=== PATIENT | female | born 1945 | race Two or more races ===

== ENCOUNTER → 2021-09-02 | Outpatient (CLI) | payer MEDICARE, OTHER ==
[~2021-09-02] MED LIST: Aspirin EC81 MG PO; Benadryl 50 mg50 MG PO; CODACE30 PO; CRUTCH2 USE; ESCI10 PO; HYDCHL25 PO; HYDR1TAB94 PO; LISI5 PO; MELO7.5 PO; METO25; METPRE4DP PO; PROM25 PO; Pepcid20 MG PO; Prilosec20 MG PO; SODCHL1 PO; Simvastatin20 MG PO; TRAM50 PO
[2021-09-02 18:05] LABS: Albumin, Blood 3.2 g/dL (3.4-5.0); Albumin/Globulin Ratio 0.7 (0.8-1.8); Bilirubin, Total 0.6 mg/dL (0.1-1.0); Bun/Creatinine Ratio 12.5 (12.0-20.0); Calcium, Blood 9.5 mg/dL (8.5-10.1); Creatinine, Blood 1.12 mg/dL (0.40-1.00); Globulin, Blood 4.5 g/dL (2.2-4.0); Potassium, Blood 3.8 mmol/L (3.5-5.5); Total Protein, Blood 7.7 g/dL (6.4-8.2)
== END | disposition home or self-care (01) ==
LOC: LAB SHORT 16:07 → LAB 16:07
PROVIDERS: Nurse Practitioner
DX: N18.9 Chronic kidney disease, unspecified (principal)
CPT/HCPCS: 80053

== ENCOUNTER 2022-02-20 13:24 | Emergency (ER) | payer MEDICARE, OTHER ==
[~2022-02-20] VITALS: Ht 152.4 cm; Wt 44.5 kg
[2022-02-20] MEDS ORDERED: CEPH500 PO (14:46)
== END 2022-02-20 15:40 | disposition home or self-care (01) ==
LOC: ER 13:24
DX: S92.421A Displaced fracture of distal phalanx of right great toe, initial encounter for closed fracture (principal); L03.031 Cellulitis of right toe; I10 Essential (primary) hypertension; Z79.899 Other long term (current) drug therapy; Z88.0 Allergy status to penicillin; X58.XXXA Exposure to other specified factors, initial encounter
CPT/HCPCS: 73660; 99283-25

== ENCOUNTER → 2022-03-04 | Outpatient (CLI) | payer MEDICARE, OTHER ==
[~2022-03-04] MED LIST changes: +CEPH500 PO
== END | disposition home or self-care (01) ==
LOC: LAB 16:56 → LAB SHORT 16:56
DX: S92.424D Nondisplaced fracture of distal phalanx of right great toe, subsequent encounter for fracture with routine healing (principal)
CPT/HCPCS: 87070; 87077; 87147; 87186; 87205

== ENCOUNTER 2022-05-08 12:31 | Day surgery (SDC) | payer MEDICARE, OTHER ==
[~2022-05-08] VITALS: Ht 152.4 cm; Wt 43.8 kg
== END 2022-05-08 16:00 | disposition home or self-care (01) ==
LOC: ORSCSDS 12:31
PROVIDERS: Podiatrist Foot & Ankle Surgery
PROC: 0Y6P0Z1 Detachment at Right 1st Toe, High, Open Approach (ICD-10-PCS; principal; 2022-05-08 14:10)
DX: M86.171 Other acute osteomyelitis, right ankle and foot (principal); I12.9 Hypertensive chronic kidney disease with stage 1 through stage 4 chronic kidney disease, or unspecified chronic kidney disease; N18.9 Chronic kidney disease, unspecified; J44.9 Chronic obstructive pulmonary disease, unspecified; F17.210 Nicotine dependence, cigarettes, uncomplicated; Z86.73 Personal history of transient ischemic attack (TIA), and cerebral infarction without residual deficits; G20 Parkinson's disease; Z79.899 Other long term (current) drug therapy; Z79.82 Long term (current) use of aspirin
CPT/HCPCS: J0171; J2250; J2704; J3010

== ENCOUNTER 2022-07-03 12:53 | Inpatient (IN) | payer OTHER, MEDICARE ==
[~2022-07-03] VITALS: Ht 157.5 cm; Wt 46.4 kg
[2022-07-03] MEDS ORDERED: ESCI20 PO (13:13)
[2022-07-03 13:20] LABS: BASOPHILS ABSOLUTE AUTO 0.16 K/mm3 (0.00-0.23); BASOPHILS PERCENT AUTO 1 % (0-2); EOSINOPHILS PERCENT AUTO 1 % (0-6); Hemoglobin 13.5 g/dL (11.5-16.0); IMMATURE GRAN ABSOLUTE AUTO 0.16 K/mm3 (0.00-0.10); IMMATURE GRAN PERCENT AUTO 1 % (0-1); LYMPHOCYTES ABSOLUTE AUTO 2.47 K/mm3 (0.84-5.20); LYMPHOCYTES PERCENT AUTO 16 % (21-46); MONOCYTES ABSOLUTE AUTO 0.89 K/mm3 (0.16-1.47); MONOCYTES PERCENT AUTO 6 % (4-13); Mean Corpuscular HGB 31.8 pg (26.0-34.0); Mean Corpuscular HGB Conc 33.8 g/dL (31.5-36.5); Mean Corpuscular Volume 94 fL (80-100); NEUTROPHILS ABSOLUTE AUTO 12.08 K/mm3 (1.96-9.15); NEUTROPHILS PERCENT AUTO 76 % (41-73); Platelet Count 265 K/mm3 (150-400); RDW Coefficient Variation 14.2 % (11.7-14.2); RDW Standard Deviation 49.2 fL (35.1-46.3); Red Blood Cell Count 4.24 M/mm3 (3.80-5.20); White Blood Cell Count 15.96 K/mm3 (4.00-11.30)
[2022-07-03 13:43] LABS: International Normalized Ratio 0.97; Prothrombin Time Results 10.2 Sec (9.7-11.5)
[2022-07-03 13:46] LABS: Alanine Aminotransfer (ALT/SGP 24 U/L (12-78); Albumin, Blood 3.8 g/dL (3.4-5.0); Albumin/Globulin Ratio 1.1 (0.8-1.8); Alk Phos 56 U/L (50-136); Anion Gap 7 mmol/L (6-16); Aspartate Aminotrans (AST/SGOT 35 U/L (12-37); Bilirubin, Total 0.4 mg/dL (0.1-1.0); Blood Urea Nitrogen 19 mg/dL (8-24); Bun/Creatinine Ratio 15.1 (12.0-20.0); CO2, Blood 27 mmol/L (21-32); Calcium, Blood 9.6 mg/dL (8.5-10.1); Chloride, Blood 105 mmol/L (98-108); Creatinine, Blood 1.26 mg/dL (0.40-1.00); Ethanol (Alcohol), Blood, Med <3 mg/dL; Globulin, Blood 3.4 g/dL (2.2-4.0); Glomerular Filtration Rate 44 (60-); Glucose, Blood 122 mg/dL (70-99); Potassium, Blood 3.7 mmol/L (3.5-5.5); Sodium, Blood 139 mmol/L (136-145); Total Protein, Blood 7.2 g/dL (6.4-8.2)
--- NOTE | 2022-07-04 02:03 | NUR ---
LLE CIRCULATION CONCERNS PT ARRIVED TO THE FLOOR AND WAS ASSESSED BY THE PRIMARY RN, AFTER ASSESSMENT THE PRIMARY RN CAME TO THIS RN TO DISCUSS CONCERNS REGARDING THE CIRCULATION IN THE PATIENTS LLE REPORTING INABILITY TO PALPATE OR GET A DORSALIS PEDIS PULSE VIA DOPPLER. AFTER A BRIEF EXAM OF THE AFFECTED EXTREMITY IT WAS APPARENT THAT THE LLE WAS COOLER AND THIS RN WAS ABLE TO GET A FAINT PULSE ON DOPPLER WHICH WAS THEN MARKED. CONSULTING ORTHOPEDIC DR WAS CONTACTED AND SITUATION WAS DISCUSSED, AT HER DIRECTION THE SUAD WRAP WAS ADJUSTED AT APPROXIMATELY 2215 ON 07/03/22 WHICH RESULTED IN A NOTICABLE INCREASE IN CIRCULATION IN THAT LEG. PULSE IS NOW FAINTLY PALPABLE USING 2 FINGERS AND PATIENT IS ABLE TO WIGGLE TOES/MOVE ANKLE THOUGH SOME EVIDENCE OF DROP FOOT WAS NOTED BY BOTH PRIMARY AND THIS RN. THE PATIENTS LEG WAS STABILIZED THROUGHOUT THE ADJUSTMENTS MADE TO THE SUAD WRAP AND BRACE. BRACE REPLACED AFTER SUAD WRAP REAPPLIED. PATIENT IN STABLE CONDITION AT TIME OF COMPLETION WITH SOME PAIN R/T MOVEMENT DURING PROCEDURE. PATIENT EDUCATION ON REASON FOR ADJUSTMENTS TO SUAD WRAP AND AGREED TO PROCEDURE. CALL LIGHT IN REACH, WILL CTM.
[2022-07-04 04:56] LABS: BASOPHILS ABSOLUTE AUTO 0.09 K/mm3 (0.00-0.23); BASOPHILS PERCENT AUTO 1 % (0-2); EOSINOPHILS ABSOLUTE AUTO 0.03 K/mm3 (0.00-0.68); EOSINOPHILS PERCENT AUTO 0 % (0-6); Hemoglobin 11.6 g/dL (11.5-16.0); IMMATURE GRAN ABSOLUTE AUTO 0.04 K/mm3 (0.00-0.10); IMMATURE GRAN PERCENT AUTO 0 % (0-1); LYMPHOCYTES ABSOLUTE AUTO 1.62 K/mm3 (0.84-5.20); LYMPHOCYTES PERCENT AUTO 18 % (21-46); MONOCYTES ABSOLUTE AUTO 0.87 K/mm3 (0.16-1.47); MONOCYTES PERCENT AUTO 10 % (4-13); Mean Corpuscular HGB 31.6 pg (26.0-34.0); Mean Corpuscular HGB Conc 33.1 g/dL (31.5-36.5); Mean Corpuscular Volume 95 fL (80-100); Mean Platelet Volume 10.1 fL (9.1-12.4); NEUTROPHILS ABSOLUTE AUTO 6.53 K/mm3 (1.96-9.15); NEUTROPHILS PERCENT AUTO 71 % (41-73); Platelet Count 205 K/mm3 (150-400); RDW Coefficient Variation 14.2 % (11.7-14.2); RDW Standard Deviation 49.8 fL (35.1-46.3); Red Blood Cell Count 3.67 M/mm3 (3.80-5.20); White Blood Cell Count 9.18 K/mm3 (4.00-11.30)
--- NOTE | 2022-07-04 05:11 | NUR ---
WHEN ARRIVING TO TO MEDICATE FOR C/O OF LLE PAIN, PT C/O CHEST PAIN,WHEN QUESTIONED FURTHER,PT INITIALLY STATED CP ONLY WHEN SHE TOUCHES CHEST WHICH IS NOTEABLE FOR BRUISES R SHOULDER THROUGH UPPER CHEST.BRIEFLY AFTER,PT REPORTED CHEST PAIN PRESENT AT REST AND WHEN NOT TOUCHING AREA.ALSO C/O FEELING "TIGHT" AT BACK OF NECK. NO C/O SOB.VSS.CONFIRMED WITH MECHANICAL DESIGN TECHNICIAN DENA NO CHANGE PER TELE.I CALLED DR ESPINOZA AND DISCUSSED ABOVE INCLUDING EKG IN ER, NO CARDIAC LABS DONE,VS,BRIEF UPDATE OF PT HX SINCE ADMIT. DR ESPINOZA ORDERED TROPS X3,PER CABLE TELEVISION ACCESS COORDINATOR THEY CAN RUN NOW TROP ON GREEN TOP JUST DRAWN.
[2022-07-04 05:30] LABS: Magnesium, Blood 2.1 mg/dL (1.6-2.4)
[2022-07-04 05:36] LABS: Bun/Creatinine Ratio 14.7 (12.0-20.0); Calcium, Blood 9.3 mg/dL (8.5-10.1); Creatinine, Blood 1.36 mg/dL (0.40-1.00); Potassium, Blood 4.2 mmol/L (3.5-5.5)
--- NOTE | 2022-07-04 07:42 | NUR ---
US IN TO DO ABD US ON PT.
--- NOTE | 2022-07-04 08:25 | NUR ---
LAB ATTEMPTED DRAW FOR TROP THIS AM AND WERE UNABLE. DAY RN ASKED LAB TO RETURN AFTER PAIN MEDS TO HAVE DIFFERENT INTERMEDIATE ACCOUNTANT TRY TO DRAW PT.
--- NOTE | 2022-07-04 10:17 | NUR ---
DR BHANDARI IN TO SEE PT.
[2022-07-04 10:42] LABS: Influenza A, PCR NEGATIVE (NEGATIVE); Influenza B, PCR NEGATIVE (NEGATIVE); Resp Syncytial Virus, PCR NEGATIVE (NEGATIVE); SARS-Cov-2 (COVID-19) PCR, MMC NEGATIVE (NEGATIVE)
--- NOTE | 2022-07-04 12:00 | NUR ---
NOTIFIED NURSING SUPERVSIOR ECHO TO BE COMPLETED STAT DR LOMAX REQUESTING ECHO TO BE COMPLETED STAT.
--- NOTE | 2022-07-04 15:45 | NUR ---
DR LOMAX IN TO SEE PT.
--- NOTE | 2022-07-04 16:18 | NUR ---
PAMELA PRATT, HYDRAULIC AUTO JACK MECHANIC, MEETING W/PATIENT.
--- NOTE | 2022-07-04 17:01 | NUR ---
SUMMARY PT C/O CP THIS AM, PRIOR TO DAYSHIFT. TROPONIN WAS ELEVATED, HAD CRITICAL HIGH OF 119 AT 1130. LAST TROPONIN TRENDING DOWN AT 115. DR LOMAX CONSULTED AND ECHO PERFORMED FOR SURGICAL CLEARANCE. PLAN FOR NPO AFTER [place] TONIGHT AND OR IN AM W/DR CHOUDHURY. PT USES ETOH DAILY, REPORTING DRINKS 5-6 BEERS/DAY. NOTIFIED DR LOVE AND ORDERS OBTAINED. PT LLE IN IMMOBILIZER. L FOOT PULSE FOUND W/DOPPLER. R FOOT PULSE FAINT/THREADY. MEDICATED PT PER ORDERS FOR PAIN. CALL LIGHT IN REACH.
--- NOTE | 2022-07-04 17:33 | NUR ---
REPORT GIVEN TO BLADE Shelton RN.
[2022-07-05 06:05] LABS: Hematocrit 36.1 % (33.0-51.0); Hemoglobin 11.9 g/dL (11.5-16.0); Mean Corpuscular HGB 31.5 pg (26.0-34.0); Mean Corpuscular Volume 96 fL (80-100); Mean Platelet Volume 10.3 fL (9.1-12.4); Platelet Count 208 K/mm3 (150-400); RDW Coefficient Variation 13.9 % (11.7-14.2); RDW Standard Deviation 49.5 fL (35.1-46.3); Red Blood Cell Count 3.78 M/mm3 (3.80-5.20); White Blood Cell Count 13.34 K/mm3 (4.00-11.30)
[2022-07-05 06:40] LABS: Calcium, Blood 9.3 mg/dL (8.5-10.1); Creatinine, Blood 1.12 mg/dL (0.40-1.00); Potassium, Blood 3.9 mmol/L (3.5-5.5)
--- NOTE | 2022-07-05 09:01 | NUR ---
SUMMARY PT IN AND OUT OF CONFUSION AND ANXIETY TONIGHT AND THIS AM. PTS FAMILY REPORTS THIS BASELINE. PT OUT TO OR THIS AM.
--- NOTE | 2022-07-05 15:21 | NUR ---
EKG DONE PER DR MONIE MERINO
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
--- NOTE | 2022-07-06 07:59 | NUR ---
SUMMARY PT SLEPT OFF AND ON WITH AT SIDE.VOIDING AND WITHOUT NAUSEA. CIRC CKS REMAIN INTACT BLE.MED IV FOR PAIN THIS AM.
--- NOTE | 2022-07-06 12:58 | NUR ---
PATIENT C/O CHEST PAIN WITH MOVEMENT AND DEEP BREATHING. MD AWARE.
--- NOTE | 2022-07-06 17:40 | NUR ---
SHIFT SUMMARY POD 1 ORIF LEFT FEMUR. SUAD WRAP & IMMOBILIZER TO LLE. UP TO CHAIR WITH PT/OT, 2P MOD/MAX ASSIST. PATIENT RELUCANT TO STAY UP IN CHAIR T/O DAY AND FOR MEALS. PROVIDED EDUCATION OF BENEFITS TO BEING UP TO CHAIR, PATIENT STILL DECLINED. PAIN MANAGED PER EMAR. TOLERATING PO INTAKE WELL, INCONTINENT OF URINE, ATTENDS IN PLACE AND CHANGED PRN T/O SHIFT. ENCOURAGED DEEP BREATHING AND IS USE T/O SHIFT. CALLS APPROPRIATELY, WILL REPORT TO ONCOMING RN.
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
[2022-07-07 16:40] LABS: Influenza A, PCR NEGATIVE (NEGATIVE); Influenza B, PCR NEGATIVE (NEGATIVE); Resp Syncytial Virus, PCR NEGATIVE (NEGATIVE); SARS-Cov-2 (COVID-19) PCR, MMC NEGATIVE (NEGATIVE)
--- NOTE | 2022-07-08 12:41 | NUR ---
DISCHARGE NOTE: ATTEMPTED TO CALL REPORT TO [facility] FOUR TIMES OVER TWO HOURS AND WAS KEPT ON HOLD FOR OVER 10 MINUTES EACH TIME WITH NO ANSWER. THIS NURSE ALSO LEFT A MESSAGE FOR THE NURSE TO CALL BACK AND STILL NO ANSWER. PATIENT IS BEING TRANSFERRED TO [facility] BY TRANSPORT IN A WHEELCHAIR. SHE IS ON 2L NC NEEDED FOR THE PATIENT BUT OTHERWISE HAS VS WNL. LEFT LEG IS IN A IMMOBILIZER AND AQUACELS UNDERNEATH THAT ARE C/D/I. DENIES NUMBNESS AND TINGLING. LEFT HEEL HAS A MEPILEX FOR COMFORT THAT IS ALSO C/D/I. PATIENT IS A TWO PERSON ASSIST TO BE A STAND PIVIOT SINCE SHE IS NON WT BEARING. PATIENT IS TOLERATING PO INTAKE AND IS INCONTINENT WHICH IS HER BASELINE AND SHE HAS NEW CLEAN ATTENDS. PATIENT HAD A BM TWO DAYS AGO AND REPORTS PASSING GAS. PATIENT HAS ITEMS IN THE ROOM GATHERED AND HAS LEFT WITH TRANSPORT TO [facility]. AND SON WERE NOTIFIED OF HER BEING TRANSPORTED TO [facility].
== END 2022-07-08 12:20 | DRG 482 ==
LOC: ER 12:53 → SURS 17:14
PROVIDERS: Family Medicine; Internal Medicine; Orthopaedic Surgery; Student in an Organized Health Care Education/Training Program; ADMIT Internal Medicine
PROC: 0QSC04Z Reposition Left Lower Femur with Internal Fixation Device, Open Approach (ICD-10-PCS; principal; 2022-07-05 08:00)
DX: S72.422A Displaced fracture of lateral condyle of left femur, initial encounter for closed fracture (principal); M19.90 Unspecified osteoarthritis, unspecified site; R07.9 Chest pain, unspecified; M54.50 Low back pain, unspecified; G89.29 Other chronic pain; N18.30 Chronic kidney disease, stage 3 unspecified; R74.8 Abnormal levels of other serum enzymes; I10 Essential (primary) hypertension; D72.829 Elevated white blood cell count, unspecified; F39 Unspecified mood [affective] disorder; J43.8 Other emphysema; S20.212A Contusion of left front wall of thorax, initial encounter; I73.9 Peripheral vascular disease, unspecified; F10.10 Alcohol abuse, uncomplicated; Z20.822 Contact with and (suspected) exposure to COVID-19; E78.00 Pure hypercholesterolemia, unspecified; F41.9 Anxiety disorder, unspecified; R77.8 Other specified abnormalities of plasma proteins; F17.210 Nicotine dependence, cigarettes, uncomplicated; Z87.442 Personal history of urinary calculi; Z88.8 Allergy status to other drugs, medicaments and biological substances; Z88.0 Allergy status to penicillin; Z88.5 Allergy status to narcotic agent; Z79.899 Other long term (current) drug therapy; Z79.82 Long term (current) use of aspirin; Z98.890 Other specified postprocedural states; Z86.73 Personal history of transient ischemic attack (TIA), and cerebral infarction without residual deficits; Z89.411 Acquired absence of right great toe; V43.62XA Car passenger injured in collision with other type car in traffic accident, initial encounter
CPT/HCPCS: 0241U; 27510; 36415; 70450; 71045; 72125; 73560-LT; 73706; 76775; 80048; 80053; 82550; 83690; 83735; 84484; 85025; 85027; 85610; 93005; 93010; 93306; 94760; 96374-59; 96375-59; 96376-59; 97110; 97161; 97166; 97530; 97535; 99152; 99291-25; A9270; C1713; G0480; J0360; J0690; J1100; J1885; J2250; J2270; J2405; J2704; J3010; J7030; J7040; Q9967

== ENCOUNTER → 2022-11-03 | Outpatient (CLI) | payer MEDICARE, OTHER ==
[~2022-11-03] MED LIST changes: +ESCI20 PO
[2022-11-03 19:06] LABS: BASOPHILS ABSOLUTE AUTO 0.11 K/mm3 (0.00-0.23); BASOPHILS PERCENT AUTO 2 % (0-2); EOSINOPHILS ABSOLUTE AUTO 0.14 K/mm3 (0.00-0.68); EOSINOPHILS PERCENT AUTO 2 % (0-6); Hematocrit 38.8 % (33.0-51.0); Hemoglobin 12.4 g/dL (11.5-16.0); IMMATURE GRAN ABSOLUTE AUTO 0.01 K/mm3 (0.00-0.10); IMMATURE GRAN PERCENT AUTO 0 % (0-1); LYMPHOCYTES PERCENT AUTO 25 % (21-46); MONOCYTES ABSOLUTE AUTO 0.64 K/mm3 (0.16-1.47); MONOCYTES PERCENT AUTO 9 % (4-13); Mean Corpuscular HGB 28.7 pg (26.0-34.0); Mean Corpuscular Volume 90 fL (80-100); Mean Platelet Volume 10.7 fL (9.1-12.4); NEUTROPHILS ABSOLUTE AUTO 4.56 K/mm3 (1.96-9.15); NEUTROPHILS PERCENT AUTO 63 % (41-73); Platelet Count 274 K/mm3 (150-400); RDW Coefficient Variation 14.8 % (11.7-14.2); RDW Standard Deviation 48.6 fL (35.1-46.3); Red Blood Cell Count 4.32 M/mm3 (3.80-5.20); White Blood Cell Count 7.26 K/mm3 (4.00-11.30)
[2022-11-03 19:54] LABS: Albumin, Blood 3.6 g/dL (3.4-5.0); Albumin/Globulin Ratio 0.9 (0.8-1.8); Bilirubin, Total 0.2 mg/dL (0.1-1.0); Bun/Creatinine Ratio 18.6 (12.0-20.0); Calcium, Blood 9.3 mg/dL (8.5-10.1); Creatinine, Blood 1.18 mg/dL (0.40-1.00); Globulin, Blood 3.8 g/dL (2.2-4.0); Potassium, Blood 3.4 mmol/L (3.5-5.5); Total Protein, Blood 7.4 g/dL (6.4-8.2)
== END | disposition home or self-care (01) ==
LOC: LAB SHORT 14:35 → LAB 14:35
PROVIDERS: Family Medicine
DX: N18.9 Chronic kidney disease, unspecified (principal); R30.0 Dysuria
CPT/HCPCS: 80053; 85025; 87077; 87086; 87186

== ENCOUNTER 2025-07-02 08:59 | Inpatient (IN) | payer MEDICARE, OTHER ==
[~2025-07-02] VITALS: Ht 152.4 cm; Wt 54.6 kg
[~2025-07-02 08:59] MED LIST changes: +TIZA4 PO
[2025-07-02 10:10] LABS: BASOPHILS ABSOLUTE AUTO 0.11 K/mm3 (0.00-0.23); BASOPHILS PERCENT AUTO 1 % (0-2); EOSINOPHILS ABSOLUTE AUTO 0.09 K/mm3 (0.00-0.68); EOSINOPHILS PERCENT AUTO 1 % (0-6); Hematocrit 34.8 % (33.0-51.0); Hemoglobin 11.0 g/dL (11.5-16.0); IMMATURE GRAN ABSOLUTE AUTO 0.04 K/mm3 (0.00-0.10); IMMATURE GRAN PERCENT AUTO 0 % (0-1); LYMPHOCYTES ABSOLUTE AUTO 1.20 K/mm3 (0.84-5.20); LYMPHOCYTES PERCENT AUTO 10 % (21-46); MONOCYTES ABSOLUTE AUTO 1.01 K/mm3 (0.16-1.47); MONOCYTES PERCENT AUTO 8 % (4-13); Mean Corpuscular HGB Conc 31.6 g/dL (31.5-36.5); Mean Corpuscular Volume 85 fL (80-100); NEUTROPHILS ABSOLUTE AUTO 9.72 K/mm3 (1.96-9.15); NEUTROPHILS PERCENT AUTO 80 % (41-73); NRBC ABSOLUTE 0.00 K/mm3 (0.00-0.02); NRBC Auto 0.0 /100 WBC (0.0-0.2); Platelet Count 373 K/mm3 (150-400); RDW Coefficient Variation 15.9 % (11.7-14.2); RDW Standard Deviation 50.0 fL (35.1-46.3)
[2025-07-02 10:28] LABS: Alanine Aminotransfer (ALT/SGP 15.0 U/L (12-78); Albumin, Blood 3.2 g/dL (3.4-5.0); Albumin/Globulin Ratio 0.7 (0.8-1.8); Anion Gap 9.0 mmol/L (3-11); Aspartate Aminotrans (AST/SGOT 17.0 U/L (12-37); Bilirubin, Total 0.3 mg/dL (0.1-1.0); Blood Urea Nitrogen 22.0 mg/dL (8-24); CO2, Blood 26.0 mmol/L (21-32); Calcium, Blood 9.5 mg/dL (8.5-10.1); Chloride, Blood 105.0 mmol/L (98-108); Creatinine, Blood 1.91 mg/dL (0.40-1.00); Globulin, Blood 4.7 g/dL (2.2-4.0); Glucose, Blood 109.0 mg/dL (70-99); Potassium, Blood 4.0 mmol/L (3.5-5.5); Sodium, Blood 136.0 mmol/L (136-145); Total Protein, Blood 7.9 g/dL (6.4-8.2)
[2025-07-02 10:43] LABS: Source, Urine Clean Catch
[2025-07-02 10:47] LABS: Bilirubin, Urine Neg (Neg); Glucose Qualitative, Urine Neg (Neg); Ketones, Urine Neg (Neg); Leukocyte Esterase, Urine 3+ (Neg); Protein, Urine 2+ (Neg); Specific Gravity, Urine 1.015 (1.003-1.022); Urobilinogen, Urine NORM (Normal)
[2025-07-02 10:49] LABS: Color, Urine Yellow (P-Yellow)
[2025-07-02 10:53] LABS: White Blood Cells, Urine TNTC /hpf (0-5)
[2025-07-02] MEDS ORDERED: NS 1,000 ML BAG IR ONE (11:55)
[2025-07-02 12:04] LABS: Magnesium, Blood 2.0 mg/dL (1.6-2.4); Phosphorus, Blood 2.9 mg/dL (2.5-4.9)
[2025-07-02] MEDS ORDERED: Ciprofloxacin 400MG/D5 200ML 200 ML IV ONE (12:05)
[2025-07-02] MEDS ORDERED: NS 1,000 ML IV SCH (12:15)
[2025-07-02] MEDS ORDERED: Ketorolac Tromethamine 15mg Vial IV PRN (16:35)
[2025-07-02 18:58] VITALS: BP 153/74
[2025-07-02] MEDS ORDERED: Ondansetron HCl 2 MG / ML 2ML Vial IV PRN (21:15)
[2025-07-02] MEDS ORDERED: FentaNYL Citrate 50 MCG/ML 2 ML Injection IV PRN ×2 (21:15)
[2025-07-02] MEDS ORDERED: Metoclopramide HCl 5MG / ML 2ML Vial IV PRN (21:25)
[2025-07-02] MEDS ORDERED: CeFAZolin Sodium 1000 mg Vial ONE (23:04)
[2025-07-02] MEDS ORDERED: FentaNYL Citrate 50 MCG/ML 2 ML Injection ONE (23:05)
[2025-07-02] MEDS ORDERED: Ondansetron HCl 2 MG / ML 2ML Vial ONE (23:15)
[2025-07-02 23:30] VITALS: BP 134/72
[2025-07-02 23:35] VITALS: BP 127/79
--- NOTE | 2025-07-02 23:37 | NUR ---
07/02/25 2337 Vale,Ilda ANCEF 2GM IV GIVEN BY AT 2311.
[2025-07-02 23:40] VITALS: BP 111/77
[2025-07-02 23:45] VITALS: BP 129/78
[2025-07-02 23:50] VITALS: BP 130/82
[2025-07-03 00:10] VITALS: BP 156/67
[2025-07-03 03:19] VITALS: BP 141/59
[2025-07-03 03:42] LABS: BASOPHILS ABSOLUTE AUTO 0.09 K/mm3 (0.00-0.23); BASOPHILS PERCENT AUTO 1 % (0-2); EOSINOPHILS ABSOLUTE AUTO 0.16 K/mm3 (0.00-0.68); EOSINOPHILS PERCENT AUTO 2 % (0-6); Hematocrit 28.9 % (33.0-51.0); Hemoglobin 9.2 g/dL (11.5-16.0); IMMATURE GRAN ABSOLUTE AUTO 0.03 K/mm3 (0.00-0.10); IMMATURE GRAN PERCENT AUTO 0 % (0-1); LYMPHOCYTES ABSOLUTE AUTO 1.39 K/mm3 (0.84-5.20); LYMPHOCYTES PERCENT AUTO 17 % (21-46); MONOCYTES ABSOLUTE AUTO 0.84 K/mm3 (0.16-1.47); MONOCYTES PERCENT AUTO 10 % (4-13); Mean Corpuscular HGB Conc 31.8 g/dL (31.5-36.5); Mean Corpuscular Volume 85 fL (80-100); NEUTROPHILS ABSOLUTE AUTO 5.81 K/mm3 (1.96-9.15); NEUTROPHILS PERCENT AUTO 70 % (41-73); NRBC ABSOLUTE 0.00 K/mm3 (0.00-0.02); NRBC Auto 0.0 /100 WBC (0.0-0.2); Platelet Count 287 K/mm3 (150-400); RDW Coefficient Variation 16.0 % (11.7-14.2); RDW Standard Deviation 49.9 fL (35.1-46.3)
[2025-07-03 04:05] LABS: Alanine Aminotransfer (ALT/SGP 9.0 U/L (12-78); Albumin, Blood 2.5 g/dL (3.4-5.0); Albumin/Globulin Ratio 0.7 (0.8-1.8); Anion Gap 9.0 mmol/L (3-11); Aspartate Aminotrans (AST/SGOT 14.0 U/L (12-37); Bilirubin, Total 0.2 mg/dL (0.1-1.0); Blood Urea Nitrogen 20.0 mg/dL (8-24); CO2, Blood 24.0 mmol/L (21-32); Calcium, Blood 8.4 mg/dL (8.5-10.1); Chloride, Blood 108.0 mmol/L (98-108); Creatinine, Blood 1.89 mg/dL (0.40-1.00); Globulin, Blood 3.8 g/dL (2.2-4.0); Glucose, Blood 98.0 mg/dL (70-99); Potassium, Blood 4.0 mmol/L (3.5-5.5); Sodium, Blood 137.0 mmol/L (136-145); Total Protein, Blood 6.3 g/dL (6.4-8.2)
--- NOTE | 2025-07-03 05:44 | NUR ---
THIS NURSE ASSISTED TRANSPORT FROM ICU/RECOVERY S/P CYSTOSCOPY W STENT PLACEMENT IN RIGHT URETER. PT ALERT AND ORIENTEDx4. FOLLOWS COMMANDS. VSS. PT ABLE TO USE BEDSIDE COMMODE WITH ONE PERSON ASSISTANCE. IV FLUIDS INFUSING. BED LOCKED IN LOWEST POSITION. CALL LIGHT WITHIN REACH.
[2025-07-03] MEDS ORDERED: Heparin Sodium,Porcine 5,000 UNIT/0.5 ML SDV SC SCH (08:00)
[2025-07-03 08:04] VITALS: BP 142/93
[2025-07-03] MEDS ORDERED: CefTRIAXone Sodium 1,000 MG in NS 100 ML IV SCH (09:00)
[2025-07-03 15:09] LABS: Anion Gap 7.0 mmol/L (3-11); Blood Urea Nitrogen 19.0 mg/dL (8-24); CO2, Blood 27.0 mmol/L (21-32); Calcium, Blood 8.9 mg/dL (8.5-10.1); Chloride, Blood 108.0 mmol/L (98-108); Creatinine, Blood 1.98 mg/dL (0.40-1.00); Glucose, Blood 111.0 mg/dL (70-99); Potassium, Blood 4.2 mmol/L (3.5-5.5); Sodium, Blood 138.0 mmol/L (136-145)
[2025-07-03 15:53] VITALS: BP 148/97
--- NOTE | 2025-07-03 18:51 | NUR ---
PT SUMMARY; NO ACUTE CHANGE FOR THE SHIFT. PT HAD MULITIPLE INCONTINENT VOIDS FOR THE SHIFT, PT REPORTS NOT BEING ABLE TO CONTROL TO URINATE AT THIS TIME AND HAS SOME BLADDER PRESSURE.MD IS AWARE AND MIGHT TAKE A COUPLE MORE DAYS TO RESOLVE. VITALS HAS BEEN STABLE. PT HAS BEEN CALLING APPROPRIATELY. LR STILL RUNNING AT 75 MLS/HR. PT TOLERATIGN DIET. TO POSSIBLY DC IN AM IF STABLE OVER NIGHT. LABS RECHECK IN AM. NO OTHER ISSUES ENCOUNTERED WILL REPORT TO ONCOMING SHIFT
[2025-07-03 19:37] VITALS: BP 152/70
[2025-07-04 03:17] VITALS: BP 172/75
--- NOTE | 2025-07-04 03:40 | NUR ---
SHIFT SUMMARY THIS RN ASSUMED CARE OF PATIENT AT 1900. NO ACUTE CHANGES OVERNIGHT. PT ON RA WHILE AWAKE. NEEDING 1-2L VIA NC WHILE SLEEPING. OTHERWISE VSS. PT DENIES FLANK PAIN. VOIDING WELL. A&O X4. ABLE TO MAKE NEEDS KNOWN. THIS RN GAVE REPORT TO HESHAM MCGOWAN ON MEDICAL FLOOR. PT TRANSFERRED TO MEDICAL FLOOR. NO S/S OF DISTRESS AT TIME OF TRANSFER.
--- NOTE | 2025-07-04 03:46 | NUR ---
TRANSFER NOTE PT ARRIVED FROM PCU WITH DX OF HYDRONEPHROSIS AND UTI. ALERT AND ORIENTED. BP ELEVATED, OTHERWISE VSS. ORIENTED TO ROOM, CALL LIGHT IN REACH, RAILS UP X 3 AND BED IN LOW POSITION FOR SAFETY. WATCHING TV. NO C/O VOICED. SMILING. IVF OF LR INFUSING AT 75 ML/HR. WILL CONT TO MONITOR.
[2025-07-04 05:21] LABS: BASOPHILS ABSOLUTE AUTO 0.10 K/mm3 (0.00-0.23); BASOPHILS PERCENT AUTO 2 % (0-2); EOSINOPHILS ABSOLUTE AUTO 0.37 K/mm3 (0.00-0.68); EOSINOPHILS PERCENT AUTO 7 % (0-6); Hematocrit 30.6 % (33.0-51.0); Hemoglobin 9.6 g/dL (11.5-16.0); IMMATURE GRAN ABSOLUTE AUTO 0.01 K/mm3 (0.00-0.10); IMMATURE GRAN PERCENT AUTO 0 % (0-1); LYMPHOCYTES ABSOLUTE AUTO 1.38 K/mm3 (0.84-5.20); LYMPHOCYTES PERCENT AUTO 24 % (21-46); MONOCYTES ABSOLUTE AUTO 0.53 K/mm3 (0.16-1.47); MONOCYTES PERCENT AUTO 9 % (4-13); Mean Corpuscular HGB Conc 31.4 g/dL (31.5-36.5); Mean Corpuscular Volume 86 fL (80-100); NEUTROPHILS ABSOLUTE AUTO 3.31 K/mm3 (1.96-9.15); NEUTROPHILS PERCENT AUTO 58 % (41-73); NRBC ABSOLUTE 0.00 K/mm3 (0.00-0.02); NRBC Auto 0.0 /100 WBC (0.0-0.2); Platelet Count 300 K/mm3 (150-400); RDW Coefficient Variation 15.9 % (11.7-14.2); RDW Standard Deviation 50.7 fL (35.1-46.3)
[2025-07-04 05:44] LABS: Anion Gap 9.0 mmol/L (3-11); Blood Urea Nitrogen 17.0 mg/dL (8-24); CO2, Blood 25.0 mmol/L (21-32); Calcium, Blood 8.4 mg/dL (8.5-10.1); Chloride, Blood 110.0 mmol/L (98-108); Creatinine, Blood 2.05 mg/dL (0.40-1.00); Glucose, Blood 83.0 mg/dL (70-99); Potassium, Blood 4.1 mmol/L (3.5-5.5); Sodium, Blood 140.0 mmol/L (136-145)
[2025-07-04 07:54] VITALS: BP 183/73
[2025-07-04] MEDS ORDERED: CIPRO500 M1 PO (14:02)
--- NOTE | 2025-07-04 14:39 | NUR ---
PT DISCHARGED THE PT VERBALIZED UNDERSTANDING OF THE DC INSTRUCTIONS. PT APPEARED IRRIATED AND IN PAIN. THE PT WAS OFFERED PAIN MEDICATION, HOWEVER, SHE DECLINED AND STATED THAT SHE JUST WANTED TO LEAVE. THE PT WAS GIVEN CONTACT INFORMATION SHE REQUIESTED FOR THE PATIENT ADVOCATE. THE PT WAS TRANSFERED VIA WHEELCHAIR ACCOMPANIED BY HER AND THE WARP SPOOLER
[2025-07-05] MEDS ORDERED: Misc. Tablet PO SCH (09:00)
== END 2025-07-04 14:50 | disposition home or self-care (01) | DRG 854 ==
LOC: ER 08:59 → MEDS 16:23 → PCU 16:23 → MEDS 18:58 → PCU 07-03 00:01 → MEDS 07-04 03:19 → ENPENDDIS 07-04 12:30 → MEDS 07-04 14:50
PROVIDERS: Physician Assistant; Student in an Organized Health Care Education/Training Program; ADMIT Family Medicine
PROC: 0T768DZ Dilation of Right Ureter with Intraluminal Device, Via Natural or Artificial Opening Endoscopic (ICD-10-PCS; 2025-07-02)
PROC: BT1D1ZZ Fluoroscopy of Right Kidney, Ureter and Bladder using Low Osmolar Contrast (ICD-10-PCS; 2025-07-02)
PROC: 3E03329 Introduction of Other Anti-infective into Peripheral Vein, Percutaneous Approach (ICD-10-PCS; principal; 2025-07-03)
DX: A41.9 Sepsis, unspecified organism (principal); N13.6 Pyonephrosis; N17.9 Acute kidney failure, unspecified; M19.90 Unspecified osteoarthritis, unspecified site; M54.50 Low back pain, unspecified; G89.29 Other chronic pain; Z66 Do not resuscitate; I12.9 Hypertensive chronic kidney disease with stage 1 through stage 4 chronic kidney disease, or unspecified chronic kidney disease; N18.32 Chronic kidney disease, stage 3b; F17.210 Nicotine dependence, cigarettes, uncomplicated; F32.A Depression, unspecified; Z79.82 Long term (current) use of aspirin; Z79.899 Other long term (current) drug therapy; Z88.0 Allergy status to penicillin; Z88.5 Allergy status to narcotic agent; Z88.8 Allergy status to other drugs, medicaments and biological substances; Z87.442 Personal history of urinary calculi; Z98.890 Other specified postprocedural states
CPT/HCPCS: 36415; 51798; 74177; 80048; 80053; 81001; 83605; 83690; 83735; 84100; 85025; 87077; 87086; 87186; 93005; 93010; 94762; 96365-59; 99285-25; A9270; C1758; C1769; C2617; J0690; J0696; J0744; J1644; J1885; J2405; J2704; J3010; J7030; J7120; Q9967

== ENCOUNTER → 2025-07-27 | Outpatient (CLI) | payer MEDICARE, OTHER ==
[~2025-07-27] MED LIST changes: +ALBU2.5V5; +Brovana15 MCG/2 M INH; +CIPRO500 M1 PO; +PULMICORT0.5 MG/21
[2025-07-27 16:05] LABS: Source, Urine Clean Catch
[2025-07-27 17:35] LABS: Bilirubin, Urine Neg (Neg); Color, Urine Yellow (P-Yellow); Glucose Qualitative, Urine Neg (Neg); Ketones, Urine Neg (Neg); Leukocyte Esterase, Urine 3+ (Neg); Protein, Urine 4+ (Neg); Specific Gravity, Urine 1.015 (1.003-1.022); Urobilinogen, Urine NORM (Normal)
[2025-07-27 17:43] LABS: Red Blood Cells, Urine TNTC /hpf (0-2); White Blood Cells, Urine TNTC /hpf (0-5)
== END ==
LOC: LAB SHORT 16:04 → LAB 16:04
PROVIDERS: Student in an Organized Health Care Education/Training Program
DX: R31.9 Hematuria, unspecified (principal)
CPT/HCPCS: 81001; 87086

== ENCOUNTER 2025-08-07 10:36 | Day surgery (SDC) | payer MEDICARE, OTHER ==
[~2025-08-07] VITALS: Ht 157.5 cm; Wt 55.0 kg
[~2025-08-07 10:36] MED LIST changes: +Lidocaine 2% Jelly Uro-Jet ONE; +Ondansetron HCl 2 MG / ML 2ML Vial ONE
[2025-08-07] MEDS ORDERED: Ciprofloxacin 400MG/D5 200ML 200 ML IV SCH (11:05)
[2025-08-07] MEDS ORDERED: Nitrofurantoin100 M1 PO (11:11)
--- NOTE | 2025-08-07 13:41 | NUR ---
08/07/25 1341 RamirezChelsea LATE ENTRY. WHEN PATIENT ARRIVED TO THE [facility] SHE WAS USING BATHROOM IN THE WAITING ROOM BUT HAD PROBLEMS WITH DIARRHEA AND DRY HEAVING. ASSISTANCE WAS REQUESTED AND CHARGE NURSE JUANI WENT OUT TO WAITING ROOM TO HELP PATIENT IN BATHROOM. PATIENT WAS TAKEN TO THE CHECK IN DESK TO GET CHECKED IN FOR TODAY'S SURGERY. PT REPORTED SEVERE NAUSEA. CHARGE NURSE JUANI WENT AND SPOKE TO DR WELLS AND ORDER RECEIVED FOR ZOFRAN 4MG IV X 1 TO BE GIVEN SOON IV ACCESS OBTAINED. PT WAS ASSISTED TO THE PREOP ROOM AND WAS ASSISTED WITH CHANGING AND GETTING IN TO PREOP BED. SOON IV ACCESS WAS OBTAINED AT 1101 ZOFRAN 4MG IV X 1 WAS ADMINISTERED. VITAL SIGNS WERE OBTAINED. LACTATED RINGERS INFUSING AT SLOW DRIP. APROXIMATELY 8 MINUTES AFTER ADMINISTRATION OF ZOFRAN PT REPORTED RELIEF OF NAUSEA. PT HAD DRIED STOOL THROUGHOUT UPPER INNER THIGH, THIGH CREASES, BUTTOCKS, AND VAGINAL AREA. THIS RN AND RN JXO CLEANED PATIENT THOROUGHLY POSSIBLE TO REMOVE STOOL. PATIENT REPORTED THAT SHE WAS TOLD SHE NEEDED TO BE ON 2L O2 AT HOME BUT REPORTS SHE HAS NOT BEEN USING IT. SPO2 FLUCTUATING BETWEEN 89-95% ON RA DEPENDING ON WHAT PATIENT WAS DOING. PLACED ON 2L O2 VIA N/C TO MAINTAIN SPO2 WNL. PATIENT HAS BEEN ASSESSED NUMEROUS TIMES SINCE INITIAL ADMIT AND REPORTS SHE IS DOING WELL. DENIES ANY FURTHER NAUSEA. NO FURTHER DIARRHEA BUT WAS INCONTINENT OF URINE ONCE SO SHE WAS CLEANSED AND SOILED CHUCKS REMOVED AND NEW CHUCKS PLACED.
[2025-08-07] MEDS ORDERED: Ondansetron HCl 2 MG / ML 2ML Vial ONE ×2 (14:01→15:45)
[2025-08-07] MEDS ORDERED: Dexamethasone Sod Phos 10 MG/ML 1ML VIAL ONE ×2 (14:01)
[2025-08-07] MEDS ORDERED: FentaNYL Citrate 50 MCG/ML 2 ML Injection ONE (14:01)
[2025-08-07] MEDS ORDERED: ePHEDrine Sulfate 50 MG/ML 1ML Injection ONE (14:58)
--- NOTE | 2025-08-07 15:41 | NUR ---
08/07/25 1541 Analisa Payne [id number] MIXED 1:1 WITH NORMAL SALINE, A TOTAL OF 21ML USED.
--- NOTE | 2025-08-07 16:09 | NUR ---
08/07/25 6500 Marlen Yu REPORT RECEIVED FROM ROSLYN TRAMMELL. PT REPORTS NO PAIN FROM SURGERY, C/O PAIN FROM BP CUFF. PT REPORTS NAUSEA, PER REPORT GIVEN ZOFRAN IN PACU. PT ON RA AT 93%. BILATERAL CALF SCDS PLACED ON PATIENT
[2025-08-07] MEDS ORDERED: Labetalol HCL 5 MG/ML 4ML Injection (Single Dose) ONE (17:28)
[2025-08-07 17:51] VITALS: BP 148/64
== END 2025-08-07 18:10 | disposition home or self-care (01) ==
LOC: ORSCSDS 10:36
PROVIDERS: Urology
PROC: 0TF68ZZ Fragmentation in Right Ureter, Via Natural or Artificial Opening Endoscopic (ICD-10-PCS; principal; 2025-08-07 12:00)
PROC: 0T768DZ Dilation of Right Ureter with Intraluminal Device, Via Natural or Artificial Opening Endoscopic (ICD-10-PCS; principal; 2025-08-07 12:00)
DX: N13.2 Hydronephrosis with renal and ureteral calculous obstruction (principal); N10 Acute pyelonephritis; I10 Essential (primary) hypertension; F17.210 Nicotine dependence, cigarettes, uncomplicated; E78.5 Hyperlipidemia, unspecified; J44.9 Chronic obstructive pulmonary disease, unspecified; I63.9 Cerebral infarction, unspecified; F32.A Depression, unspecified; Z79.899 Other long term (current) drug therapy
CPT/HCPCS: 82947; C1769; C2617; J0744; J1100; J1790; J2405; J2704; J3010; J7120

== ENCOUNTER → 2025-08-31 | Outpatient (CLI) | payer MEDICARE, OTHER ==
[~2025-08-31] MED LIST changes: -Lidocaine 2% Jelly Uro-Jet ONE; +Nitrofurantoin100 M1 PO; -Ondansetron HCl 2 MG / ML 2ML Vial ONE
[2025-08-31 16:31] LABS: Bilirubin, Urine Neg (Neg); Color, Urine Yellow (P-Yellow); Glucose Qualitative, Urine Neg (Neg); Ketones, Urine Neg (Neg); Leukocyte Esterase, Urine 2+ (Neg); Protein, Urine 2+ (Neg); Specific Gravity, Urine 1.020 (1.003-1.022); Urobilinogen, Urine NORM (Normal)
[2025-08-31 16:34] LABS: BASOPHILS ABSOLUTE AUTO 0.08 K/mm3 (0.00-0.23); BASOPHILS PERCENT AUTO 1 % (0-2); EOSINOPHILS ABSOLUTE AUTO 0.28 K/mm3 (0.00-0.68); EOSINOPHILS PERCENT AUTO 4 % (0-6); Hematocrit 39.5 % (33.0-51.0); Hemoglobin 11.8 g/dL (11.5-16.0); IMMATURE GRAN ABSOLUTE AUTO 0.03 K/mm3 (0.00-0.10); IMMATURE GRAN PERCENT AUTO 0 % (0-1); LYMPHOCYTES ABSOLUTE AUTO 2.12 K/mm3 (0.84-5.20); LYMPHOCYTES PERCENT AUTO 31 % (21-46); MONOCYTES ABSOLUTE AUTO 0.47 K/mm3 (0.16-1.47); MONOCYTES PERCENT AUTO 7 % (4-13); Mean Corpuscular HGB Conc 29.9 g/dL (31.5-36.5); Mean Corpuscular Volume 91 fL (80-100); NEUTROPHILS ABSOLUTE AUTO 3.96 K/mm3 (1.96-9.15); NEUTROPHILS PERCENT AUTO 57 % (41-73); NRBC ABSOLUTE 0.02 K/mm3 (0.00-0.02); NRBC Auto 0.3 /100 WBC (0.0-0.2); Platelet Count 299 K/mm3 (150-400); RDW Coefficient Variation 16.1 % (11.7-14.2); RDW Standard Deviation 54.1 fL (35.1-46.3)
[2025-08-31 16:46] LABS: Alanine Aminotransfer (ALT/SGP 18.0 U/L (12-78); Albumin, Blood 4.0 g/dL (3.4-5.0); Albumin/Globulin Ratio 1.0 (0.8-1.8); Anion Gap 11.0 mmol/L (3-11); Aspartate Aminotrans (AST/SGOT 31.0 U/L (12-37); Bilirubin, Total 0.4 mg/dL (0.1-1.0); Blood Urea Nitrogen 26.0 mg/dL (8-24); CO2, Blood 21.0 mmol/L (21-32); Calcium, Blood 9.8 mg/dL (8.5-10.1); Chloride, Blood 109.0 mmol/L (98-108); Creatinine, Blood 1.73 mg/dL (0.40-1.00); Globulin, Blood 4.1 g/dL (2.2-4.0); Glucose, Blood 89.0 mg/dL (70-99); Potassium, Blood 3.9 mmol/L (3.5-5.5); Sodium, Blood 137.0 mmol/L (136-145); Total Protein, Blood 8.1 g/dL (6.4-8.2)
[2025-08-31 17:23] LABS: Red Blood Cells, Urine 0-2 /hpf (0-2)
== END | disposition home or self-care (01) ==
LOC: LAB SHORT 16:15 → LAB 16:15
PROVIDERS: Student in an Organized Health Care Education/Training Program
DX: J44.9 Chronic obstructive pulmonary disease, unspecified (principal); D64.9 Anemia, unspecified; R31.9 Hematuria, unspecified
CPT/HCPCS: 80053; 81001; 85025